=== PATIENT | female | born 1995 | race Caucasian/White ===

== ENCOUNTER 2022-09-24 12:28 | Emergency (ER) | payer OTHER ==
[~2022-09-24] VITALS: Ht 177.8 cm; Wt 68.0 kg
[2022-09-24 12:33] VITALS: BP 122/77
== END 2022-09-24 14:02 | disposition home or self-care (01) ==
LOC: ER 12:28
DX: S00.83XA Contusion of other part of head, initial encounter (principal); M62.838 Other muscle spasm; F17.210 Nicotine dependence, cigarettes, uncomplicated; Z23 Encounter for immunization; W22.8XXA Striking against or struck by other objects, initial encounter
CPT/HCPCS: 90471; 90714; 99283-25; A9270